=== PATIENT | female | born 1990 | race Caucasian/White ===

== ENCOUNTER 2022-12-07 15:07 | Emergency (ER) | payer OTHER ==
[~2022-12-07] VITALS: Ht 147.3 cm; Wt 38.1 kg
[2022-12-07 15:34] VITALS: BP 142/92
[2022-12-07] MEDS ORDERED: ACETAMINOPHEN EXTRA STRENGTH 500 MG TAB PO ONE ×2 (15:50)
--- NOTE | 2022-12-07 16:33 | NUR ---
PT AMBULATED TO BED 04.
[2022-12-07] MEDS ORDERED: IBUP-1842 PO (16:48)
[2022-12-07] MEDS ORDERED: PRED20TA5 PO (16:48)
--- NOTE | 2022-12-07 17:12 | NUR ---
Patient discharged with v/s stable. Written and verbal after care instructions about upper respiratory infection, cough given and explained. Patient alert, oriented and verbalized understanding of instructions. Ambulatory with steady gait. All questions addressed prior to discharge. ID band removed. Patient advised to follow up with PMD. Rx of motrin and deltasone given. Patient educated on indication of medication including possible reaction and side effects. Opportunity to ask questions provided and answered.
== END 2022-12-07 17:12 | disposition home or self-care (01) ==
LOC: MED 15:07
DX: J06.9 Acute upper respiratory infection, unspecified (principal); R50.9 Fever, unspecified; Z88.0 Allergy status to penicillin
CPT/HCPCS: 81025; 99283